=== PATIENT | male | born 1960 | race Caucasian/White ===

== ENCOUNTER 2017-09-05 01:32 | Emergency (ER) | payer BC, OTHER ==
[~2017-09-05] VITALS: Ht 188 cm; Wt 105.0 kg
[~2017-09-05 01:32] MED LIST: METH2.5 PO; XANA0.5T PO
[2017-09-05 01:33] VITALS: BP 151/83; PULSE 80; RESP 16; TEMP 98.2; O2SAT 98
[2017-09-05] MEDS ORDERED: BP MED PO (01:39)
[2017-09-05] MEDS ORDERED: METH2.5T PO (01:39)
[2017-09-05] MEDS ORDERED: CORTI10A RIGHT EAR (02:27)
[2017-09-05] MEDS ORDERED: KETOROLAC TROMETHAMINE 60 MG/2 ML (IM) VIAL IM ONE (02:30)
[2017-09-05] MEDS ORDERED: NEOMYCIN/POLYMYXIN/HYDROCORT OTIC SOLN 10 ML BTL RIGHT EAR ONE (02:30)
--- NOTE | 2017-09-05 02:30 | PD ---
HPI Chief Complaint: ENT Complaint Time Seen by Provider: 02:26 Travel History International Travel<30 days: No Contact w/Intl Traveler<30days: No Traveled to known affect area: No History of Present Illness HPI 57-year-old male here with right ear pain. He reports that 5 days ago he felt like his right ear was clogged with cerumen. He attempted to flush it out with water. 3 days ago he developed pain in his right ear. Pain is throbbing, constant, worse with otic manipulation. He denies cough, congestion, sore throat, fevers, chills, rash. He has no other complaints. PFSH Past Medical History Heart Rhythm Problems: No Cardiac Catheterization: No Cardiovascular Problems: No High Cholesterol: No Congestive Heart Failure: No Diabetes: No Diminished Hearing: No Past Surgical History Surgical History: No Previous Surgery Coronary Artery Bypass Graft: No Social History Alcohol Use: No (DENIES) Tobacco Use: Yes (2 PPD) Substance Use: No Allergies-Medications (Allergen,Severity, Reaction): Coded Allergies: shellfish derived (Unverified Allergy, Severe, Rash, 09/05/17) Reported Meds & Prescriptions Reported Meds & Active Scripts Active Reported [Bp Med] Mg PO DAILY Methotrexate 2.5 Mg Tab 30 Mg PO Q30 DAYS Review of Systems Except as stated in HPI: all other systems reviewed are Neg Physical Exam Narrative GENERAL: Well-nourished male in no acute distress SKIN: Warm and dry. HEAD: Atraumatic. Normocephalic. EYES: Pupils equal and round. No scleral icterus. No injection or drainage. ENT: No nasal bleeding or discharge. Mucous membranes pink and moist. Right external ear canal is erythematous and edematous. NECK: Trachea midline. No JVD. No lymphadenopathy CARDIOVASCULAR: Regular rate and rhythm. No murmur appreciated. RESPIRATORY: No accessory muscle use. Clear to auscultation. Breath sounds equal bilaterally. Data Data Last Documented VS Vital Signs Date Time Temp Pulse Resp B/P (MAP) Pulse Ox O2 Delivery O2 Flow Rate FiO2 09/05/17 02:03 20 09/05/17 01:33 98.2 80 151/83 (105) 98 Room Air Orders Orders Jcjpnwom-Cvmlemjy-Rt Otic Soln (Cortispo (09/05/17 02:30) Ketorolac Inj (Toradol Inj) (09/05/17 02:30) Ed Discharge Order (09/05/17 02:26) [facility] Medical Decision Making Medical Screen Exam Complete: Yes Emergency Medical Condition: Yes Medical Record Reviewed: Yes Differential Diagnosis Otitis externa, otitis media, eustachian tube dysfunction, perforated tympanic membrane, mastoiditis Narrative Course Examination and history are consistent with right otitis media. He is being discharged with Cortisporin otic solution. Diagnosis Primary Impression: Right otitis externa Additional Instructions: Medication as prescribed. Tylenol or Motrin for pain. Avoid getting water and right ear canal. Return for any emergent medical conditions. Med/Other Pt SpecificInfo: Prescription(s) given Scripts Lkpyhxer-Afblqrqft-BE Otic Drops (Qgftamwb-Scezebwsy-QW Otic Drops) 1 % Soln 4 DROP RIGHT EAR QID for Infection for 10 Days, #1 BOTTLE 0 Refills Prov: Brittney Gonzalez DO 09/05/17 Disposition: 01 DISCHARGE HOME Condition: Stable Kodi Alas Sep 05, 2017 02:30
== END 2017-09-05 02:49 | disposition home or self-care (01) ==
LOC: NEPD 01:32
DX: H60.91 Unspecified otitis externa, right ear (principal); F17.200 Nicotine dependence, unspecified, uncomplicated
CPT/HCPCS: 96372; 99283; J1885